=== PATIENT | female | born 2000 | race Caucasian/White ===

== ENCOUNTER 2023-09-12 11:34 | Emergency (ER) | payer MEDICAID, SELFPAY ==
[2023-09-12 11:50] VITALS: BP 113/76; PULSE 69; TEMP 36.7; O2SAT 98; BMI 38.4
[2023-09-12 11:53] VITALS: BP 128/94; PULSE 85; RESP 14; O2SAT 95
[2023-09-12] MEDS: orphenadrine 30 mg/mL Inj 2 mL 60 MG IM (12:05)
[2023-09-12] MEDS: ketorolac 30 mg/mL INJ IVP (12:08)
--- NOTE | 2023-09-12 12:08 | W.ED.BACK ---
HPI - Back Pain/Injury General: Chief Complaint: Back Pain/Injury Stated Complaint: back pain Time Seen by Provider: 09/12/23 11:54 Source: patient Mode of arrival: ambulatory History of Present Illness: 22-year-old female with a history of chronic back pain about 1 year ago she fell and injured her lower back. She had plain films there is no acute fractures she has intermittently had trouble with her back since that time. She does not recall her recent triggering event. She began to have more increasing back discomfort seen her primary care doctor started on meloxicam says it has not been helping. She has not had any advanced imaging in the past no red flag symptoms times she has not had any peritoneal or saddle paresthesias she has not had any fecal incontinence or urinary retention denies dysuria urgency or frequency no history of kidney stones no hematuria MD elicited complaint: back pain Pertinent past history: prior back pain Onset (ago): day(s) Timing: constant Severity: moderate Similar Symptoms Previously: Yes Quality: sharp Location: lumbar spine Radiation: right upper leg Exacerbating factors: movement, sitting upright and walking Relieving factors: supine Associated symptoms: Deny abdominal pain, arthralgias, chills, change in bowel habits, difficulty walking, dysuria, fatigue, fecal incontinence, fever(s), hematuria, myalgias, nausea, numbness, syncope, tingling/numbness/burning, urinary frequency, urinary urgency, vomiting or weakness Treatments prior to arrival: NSAIDS Work related injury: No Review of Systems Const: Denies: fever(s), chills or fatigue Card: Denies: syncope Resp: Denies: dyspnea GI: Denies: abdominal pain, nausea, vomiting, fecal incontinence or change in bowel habits : Denies: dysuria, urinary urgency or hematuria Musc: Denies: neck pain or back pain Skin/Breast: Denies: rash Neuro: Denies: difficulty walking Physical Exam Const: GENERAL APPEARANCE: cooperative and comfortable ORIENTATION/CONSCIOUSNESS: Yes awake, Yes oriented to person, Yes oriented to place and Yes oriented to time HENMT: COMMON NORMALS: normocephalic, atraumatic and hearing grossly normal bilaterally HEAD & SCALP: normocephalic and atraumatic Resp: COMMON NORMALS: normal respiratory effort, No retractions, No use of accessory muscles and clear to auscultation bilaterally AUSCULTATION: clear to auscultation bilaterally Cardio: COMMON NORMALS: regular rate, regular rhythm and No murmurs present (Cardio) RATE: regular rate RHYTHM: regular rhythm GI: COMMON NORMALS: Soft to palpation and No hepatosplenomegaly present AUSCULTATION: Yes normoactive bowel sounds PALPATION: Yes Soft to palpation, No Tenderness to palpation present (GI), No Guarding due to palpation present (GI) and Yes No hepatosplenomegaly present Extremity: COMMON NORMALS: normal to inspection, capillary refill normal, no clubbing, cyanosis or edema, no calf tenderness and no pedal edema Neuro: SENSORIUM/ORIENTATION: Yes oriented to person, Yes oriented to place and Yes oriented to time OTHER: Straight leg raising does irritate mildly in the right leg with some element for 5 radicular symptoms to the level of the knee. Dorsum plantarflexion ankle at the ankle are 5 of 5 deep tendon patellar reflexes +2/4 bilaterally neurovascularly intact in the lower extremities. Skin: COMMON NORMALS: no rashes or lesions noted GENERAL SKIN EXAM: no rashes or lesions noted Course Vital Signs: Vital signs: Vital Signs Temperature 98.1 F 09/12/23 11:50 Pulse Rate 78 09/12/23 13:28 Respiratory Rate 20 H 09/12/23 12:10 Blood Pressure 106/72 09/12/23 13:28 Pulse Oximetry 98 09/12/23 13:28 Oxygen Delivery Me thod Room Air 09/12/23 11:53 MDM - Back Pain/Injury Medical Decision Making Lumbar radiculopathy no red flag symptoms. No recent trauma. No imaging was done today given her history. Will start her on a steroid taper Norflex change her diclofenac to use as needed. Have her follow-up with her primary care doc if symptoms persist she may need to be evaluated with advanced imaging. Differential Diagnosis Likely lumbar radiculopathy and strain of lumbar region Medical Records I reviewed the patient's medical records. Labs I reviewed the patient's lab results. No radiology studies performed this visit Discharge Plan Discharge Patient Disposition: Home Clinical Impression: Strain of lumbar region Condition: Stable Prescriptions: New tizanidine 4 mg tablet 4 mg PO Q6H PRN (Reason: muscle spasticity) Qty: 20 0RF Rx Instructions: do not exceed 3 doses per 24 hrs prednisone 20 mg tablet 20 mg PO TID Qty: 15 0RF Rx Instructions: 1 p.o. 3 times daily x3 days, 1 p.o. twice daily x2 days, 1 p.o. daily x2 days diclofenac sodium 75 mg tablet,delayed release (DR/EC) 75 mg PO Q12H PRN (Reason: pain) Qty: 20 0RF No Action meloxicam 15 mg Tablet 15 mg PO DAILY buspirone 15 mg Tablet 15 mg PO TID escitalopram oxalate 20 mg tablet 20 mg PO DAILY Discharge Orders: Discharge ED (Routine); Ordered 09/12/23 Ordered By: Antonio Brar Referrals: Jose Martin Baumann FNP [Primary Care Provider] - Patient Instructions: Lumbar Radiculopathy (ED), Opioid Safety, Pain Management Activity Restrictions/Additional Instructions: Thank you for choosing [facility] for your healthcare needs today. Please realize this is an emergency room and that we are providing you with a medical screening exam and this may not be complete and all inclusive of all the testing and or work up that you may need to determine your ailment or severity of your illness. It is very important that you follow up as instructed or that you return to the Emergency Department should you have concerns or if your condition changes or worsens in any way. Coding Level of Care Code ED Crystal Mounter for João Navarro
[2023-09-12 12:10] VITALS: RESP 20; O2SAT 95
[2023-09-12] MEDS: morphine 4 mg/mL SDV 1 mL IVP (12:10)
[2023-09-12] MEDS: dexamethasone 10 mg/mL INJ IM (12:11)
[2023-09-12 13:28] VITALS: BP 106/72; PULSE 78; O2SAT 98
== END 2023-09-12 13:30 | disposition home or self-care (01) ==
PROVIDERS: Emergency Provider Family Medicine; PCP Nurse Practitioner Family
DX: S39.012A Strain of muscle, fascia and tendon of lower back, initial encounter (principal); X58.XXXA Exposure to other specified factors, initial encounter
CPT/HCPCS: 96372; 96374; 96375; 99284; J1100; J1885; J2270; J2360

== ENCOUNTER 2023-10-26 10:06 | Emergency (ER) | payer MEDICAID, SELFPAY ==
[2023-10-26 10:29] VITALS: BP 132/84; PULSE 100; RESP 18; TEMP 36.8; O2SAT 100; BMI 36.9
[2023-10-26 11:07] LABS: Basophils % 0.5 %; Eosinophils # 0.1 10^3/uL (0.0-0.8); Eosinophils % 1.5 %; Hematocrit 43.8 % (36-47); Lymphocytes # 2.4 10^3/uL (0.8-4.8); Lymphocytes % 31.3 %; Mean Corpuscular HGB Conc 32.6 g/dL (30-55); Mean Corpuscular Hemoglobin 29.5 pg (27-33); Mean Corpuscular Volume 90.5 fl (85-98); Monocytes # 0.5 10^3/uL (0.2-0.9); Monocytes % 6.8 %; Neutrophils # 4.49 10^3/uL (1.8-7.7); Neutrophils % 59.6 %; Nucleated Red Blood Cells % 0 %; Platelet Count 282 10^3/cmm (157-399); Red Blood Count 4.84 10^6/uL (3.85-5.65); Red Cell Distribution Width 13.9 % (12.1-15.1); White Blood Count 7.53 10^3/uL (3.29-11.43)
[2023-10-26 11:23] LABS: HCG, Serum Qual Negative (Negative)
[2023-10-26 11:31] LABS: Alanine Aminotransferase 124 U/L (0-33); Albumin Level 4.5 g/dL (3.5-5.2); Alkaline Phosphatase 120 U/L (35-105); Anion Gap 17.1 (5-19); Aspartate Amino Transferase 30 U/L (0-32); Blood Urea Nitrogen 7 mg/dL (6-20); Calcium 9.2 mg/dL (8.5-10.5); Carbon Dioxide 22 mmol/L (22-29); Chloride 110 mmol/L (98-107); Creatinine Clr Calc Pharmacy 102.3819; Glomerular Filtration Rate 77.6 mL/min (90-130); Glucose 93 mg/dL (65-115); Osmolality Calculated 300 mOsm/kg (285-295); Potassium 3.1 mmol/L (3.5-5.1); Sodium 146 mmol/L (136-145); Total Bilirubin 0.5 mg/dL (0.15-1.2); Total Protein 7.5 g/dL (6.6-8.7)
--- NOTE | 2023-10-26 11:48 | US_ITS ---
WS: [id number] US pelv w/transvag [id number] HISTORY: vag bleeding COMPARISON: None available. Uterus: 7.2 cm x 3.9 cm x 3.8 cm. Retroverted uterus is normal size. No fibroid. Endometrium: 0.5 cm. Normal. Right ovary: 3.3 cm x 2.0 cm x 2.5 cm. Normal size and vascularity, no cystic or solid masses. Multip le small follicles. Peripheral follicles are increased in number. Left ovary: 3.3 cm x 3.0 cm x 1.4 cm. Normal size ovary. Increasing peripheral follicles. Physiologic free fluid. US/US pelv w/transvag [id number] IMPRESSION: 1. Normal endometrium. 2. Retroverted uterus. 3. Multiple small peripheral ovarian follicles. Numerous peripheral follicles and location are approaching the number seen with PCOS.
--- NOTE | 2023-10-26 14:04 | ED_ITS ---
HPI - Female Genitourinary 2 General: Chief complaint: Vaginal Bleeding Stated complaint: abd and pelvic pain, vaginal bleeding for 3 weeks Time Seen by Provider: 10/26/23 13:33 Source: patient Mode of arrival: ambulatory Limitations: no limitations History of Present Illness: Patient is a 22-year-old female here with complaints of heavy vaginal bleeding. Patient states she has been on the Depo-Provera shot over the past 5 months. She states over that timeframe she has not experienced any vaginal bleeding however the past 2 to 3 weeks she has started bleeding heavily with the passage of clots thus causing her concern prompting her medical evaluation. She is reporting lower extremity cramping. She has otherwise not had any vaginal discharge or vaginal odor. No new sexual partners. No fevers. She states she is up-to-date on Pap smear performed by her PCP. MD elicited complaint: vaginal bleeding Onset (ago): week(s) Severity: moderate Vaginal discharge: none Vaginal bleeding: moderate and clots Exacerbating factors: none Relieving factors: none Associated symptoms: Deny abdominal pain, nausea or vaginal discharge Patient : No Review of Systems 2 Const: Denies: fever(s) Card: Denies: chest pain Resp: Denies: dyspnea GI: Denies: abdominal pain, nausea, vomiting, diarrhea or change in bowel habits : Reports: vaginal bleeding and pelvic pain; Denies: flank pain, difficulty voiding, dysuria, urinary frequency, urinary urgency, urinary hesitancy, hematuria, genital pruritis, vaginal odor or vaginal discharge Musc: Denies: back pain Neuro: Denies: dizziness Physical Exam 2 Const: COMMON NORMALS: no acute distress, patient oriented x3, no limitations, alert and well nourished GENERAL APPEARANCE: cooperative NUTRITIONAL APPEARANCE: obese ORIENTATION/CONSCIOUSNESS: Yes awake, Yes oriented to person, Yes oriented to place and Yes oriented to time Resp: COMMON NORMALS: normal respiratory effort and clear to auscultation bilaterally AUSCULTATION: clear to auscultation bilaterally Cardio: COMMON NORMALS: regular rate and regular rhythm RATE: regular rate RHYTHM: regular rhythm GI: COMMON NORMALS: Normal to inspection, nondistended, normoactive bowel sounds present, Soft to palpation, No hepatosplenomegaly present and no masses INSPECTION: Yes normal to inspection PALPATION: Yes Soft to palpation, Yes Tenderness to palpation present (GI) (mild lower abdomen/pelvis; non surgical exam), No Guarding due to palpation present (GI), No Rigid due to palpation and Yes No hepatosplenomegaly present : COMMON NORMALS: Yes no CVA tenderness BLADDER/KIDNEY EXAM: Yes no CVA tenderness Back/Pelvis: COMMON NORMALS: no CVA tenderness Neuro: COMMON NORMALS: patient oriented x3 SENSORIUM/ORIENTATION: Yes alert, Yes oriented to person, Yes oriented to place and Yes oriented to time Course 2 Vital Signs: Vital signs: Vital Signs Temperature 98.2 F 10/26/23 10:29 Pulse Rate 100 10/26/23 10:29 Respiratory Rate 18 10/26/23 10:29 Blood Pressure 132/84 10/26/23 10:29 Pulse Oximetry 100 10/26/23 10:29 Oxygen Delivery Me thod Room Air 10/26/23 10:29 MDM - Female Medical Decision Making Patient clinically appearing in no acute distress. Her vital signs are stable. Her H&H is normal. Transvaginal ultrasound showing multiple small peripheral ovarian follicles-radiologist commented that the numerous follicles on location are approaching the number seen with PCOS. No other abnormalities noted. Patient is UTD on Pap smear. At this time I would like her to follow-up with [facility]. She is stable for discharge from an emergency standpoint. Lab Data 10/26/23 10:49 10/26/23 10:49 Radiology Impressions Pelvic/Transvag US 10/26/23 11:48 IMPRESSION: 1. Normal endometrium. 2. Retroverted uterus. 3. Multiple small peripheral ovarian follicles. Numerous peripheral follicles and location are approaching the number seen with PCOS. Laboratory Results WBC 7.53 10^3/uL (3.29-11.43) 10/26/23 10:49 RBC 4.84 10^6/uL (3.85-5.65) 10/26/23 10:49 Hgb 14.30 g/dL (11.27-16.99) 10/26/23 10:49 Hct 43.8 % (36-47) 10/26/23 10:49 MCV 90.5 fl (85-98) 10/26/23 10:49 MCH 29.5 pg (27-33) 10/26/23 10:49 MCHC 32.6 g/dL (30-55) 10/26/23 10:49 RDW 13.9 % (12.1-15.1) 10/26/23 10:49 Plt Count 282 10^3/cmm (157-399) 10/26/23 10:49 MPV 12.0 fL (7.4-10.4) H 10/26/23 10:49 Neut % (Auto) 59.6 % 10/26/23 10:49 Lymph % (Auto) 31.3 % 10/26/23 10:49 Ada % (Auto) 6.8 % 10/26/23 10:49 Eos % (Auto) 1.5 % 10/26/23 10:49 Baso % (Auto) 0.5 % 10/26/23 10:49 Neut # (Auto) 4.49 10^3/uL (1.8-7.7) 10/26/23 10:49 Lymph # (Auto) 2.4 10^3/uL (0.8-4.8) 10/26/23 10:49 Ada # (Auto) 0.5 10^3/uL (0.2-0.9) 10/26/23 10:49 Eos # (Auto) 0.1 10^3/uL (0.0-0.8) 10/26/23 10:49 Baso # (Auto) 0.0 10^3/uL (0.0-0.1) 10/26/23 10:49 Nucleated RBC % (auto) 0 % 10/26/23 10:49 Nucleated RBCs # 0.0 /100WBC 10/26/23 10:49 Sodium 146 mmol/L (136-145) H 10/26/23 10:49 Potassium 3.1 mmol/L (3.5-5.1) L 10/26/23 10:49 Chloride 110 mmol/L (98-107) H 10/26/23 10:49 Carbon Dioxide 22 mmol/L (22-29) 10/26/23 10:49 Anion Gap 17.1 (5-19) 10/26/23 10:49 BUN 7 mg/dL (6-20) 10/26/23 10:49 Creatinine 0.9 mg/dL (0.5-0.9) 10/26/23 10:49 GFR Calculation 77.6 mL/min (90-130) L 10/26/23 10:49 Glucose 93 mg/dL (65-115) 10/26/23 10:49 Calculated Osmolality 300 mOsm/kg (285-295) H 10/26/23 10:49 Calcium 9.2 mg/dL (8.5-10.5) 10/26/23 10:49 Total Bilirubin 0.5 mg/dL (0.15-1.2) 10/26/23 10:49 AST 30 U/L (0-32) 10/26/23 10:49 ALT 124 U/L (0-33) H 10/26/23 10:49 Alkaline Phosphatase 120 U/L (35-105) H 10/26/23 10:49 Total Protein 7.5 g/dL (6.6-8.7) 10/26/23 10:49 Albumin 4.5 g/dL (3.5-5.2) 10/26/23 10:49 Globulin 3.0 g/dL (1.3-4.6) 10/26/23 10:49 HCG, Qual Negative (Negative) 10/26/23 10:49 Ser , Semi-Qnt Cancelled 10/26/23 10:49 All radiology interpretation(s) finalized by discharge Discharge Plan Discharge Condition: Stable Prescriptions: No Action tizanidine 4 mg tablet 4 mg PO Q6H PRN (Reason: muscle spasticity) Qty: 20 0RF Rx Instructions: do not exceed 3 doses per 24 hrs prednisone 20 mg tablet 20 mg PO TID Qty: 15 0RF Rx Instructions: 1 p.o. 3 times daily x3 days, 1 p.o. twice daily x2 days, 1 p.o. daily x2 days diclofenac sodium 75 mg tablet,delayed release (DR/EC) 75 mg PO Q12H PRN (Reason: pain) Qty: 20 0RF meloxicam 15 mg Tablet 15 mg PO DAILY buspirone 15 mg Tablet 15 mg PO TID escitalopram oxalate 20 mg tablet 20 mg PO DAILY Referrals: Jose Martin Baumann FNP [Primary Care Provider] - Coding Level of Care Code ED Consulting Networking Engineer for Vivienneg Ramon
[2023-10-26] MEDS: potassium chloride ER 20 mEq Tablet 40 MEQ PO (14:35)
[2023-10-26 14:53] VITALS: BP 132/84; PULSE 100; RESP 18; TEMP 36.8; O2SAT 100
--- NOTE | 2023-10-27 07:25 | DCPLANNER ---
Message sent to [employer] C[employer] for follow up - poss PCOS
== END 2023-10-26 14:57 | disposition home or self-care (01) ==
PROVIDERS: Emergency Provider Physician Assistant; PCP Nurse Practitioner Family
DX: R10.2 Pelvic and perineal pain (principal); N93.9 Abnormal uterine and vaginal bleeding, unspecified
CPT/HCPCS: 36415; 76830; 76856; 80053; 84703; 85025; 99284

== ENCOUNTER 2023-12-02 13:54 | Emergency (ER) | payer MEDICAID, SELFPAY ==
[2023-12-02 13:56] VITALS: BP 109/73; PULSE 102; RESP 16; TEMP 36.6; O2SAT 98
--- NOTE | 2023-12-02 15:32 | W.ED.BACK ---
HPI - Back Pain/Injury General: Chief Complaint: Back Pain/Injury Stated Complaint: Low back pain Time Seen by Provider: 12/02/23 14:58 Source: patient Mode of arrival: ambulatory History of Present Illness: 23-year-old female presents emergency room with complaint of low back pain she has had this intermittently for the last year it has been quite a bit worse the last couple of weeks. She has seen her primary care doctor they had been trying to get her set up for an MRI but it is not yet been arranged for her. She is using anti-inflammatories and muscle relaxers heat nothing is really helped her back. Bending picking up heavy objects seems to exacerbate it. She has no fecal incontinence no urinary retention. Does have pain radiating to the upper thigh bilaterally. No weakness in her lower extremities. MD elicited complaint: back pain Pertinent past history: prior back pain Onset (ago): minute(s) Timing: constant Severity: moderate Similar Symptoms Previously: Yes Location: lumbar spine Radiation: none Exacerbating factors: none Associated symptoms: Deny abdominal pain, arthralgias, chills, change in bowel habits, difficulty walking, dysuria, fatigue, fecal incontinence, fever(s), hematuria, myalgias, nausea, numbness, syncope, tingling/numbness/burning, urinary frequency, urinary urgency, vomiting or weakness Treatments prior to arrival: heat therapy, NSAIDS and prescription analgesics (Muscle relaxer) Review of Systems Const: Denies: fever(s), chills or fatigue Card: Denies: syncope Resp: Denies: dyspnea GI: Denies: abdominal pain, nausea, vomiting, fecal incontinence or change in bowel habits : Denies: dysuria, urinary urgency or hematuria Musc: Reports: back pain; Denies: neck pain Skin/Breast: Denies: rash Neuro: Denies: difficulty walking PFSH ED PFSH: Family History Grandmother Colon cancer Hypertension Stroke Diabetes Mother Hypertension Denies family history of Ovarian cancer Heart disease Hyperlipidemia Breast cancer Uterine cancer Thyroid disease Social History Smoking and tobacco/nicotine status: never used tobacco/nicotine Physical Exam Const: GENERAL APPEARANCE: cooperative and comfortable ORIENTATION/CONSCIOUSNESS: Yes awake, Yes oriented to person, Yes oriented to place and Yes oriented to time HENMT: COMMON NORMALS: normocephalic, atraumatic and hearing grossly normal bilaterally HEAD & SCALP: normocephalic and atraumatic Resp: COMMON NORMALS: normal respiratory effort, No retractions, No use of accessory muscles and clear to auscultation bilaterally AUSCULTATION: clear to auscultation bilaterally Cardio: COMMON NORMALS: regular rate, regular rhythm and No murmurs present (Cardio) RATE: regular rate RHYTHM: regular rhythm GI: COMMON NORMALS: Soft to palpation and No hepatosplenomegaly present AUSCULTATION: Yes normoactive bowel sounds PALPATION: Yes Soft to palpation, No Tenderness to palpation present (GI), No Guarding due to palpation present (GI) and Yes No hepatosplenomegaly present : COMMON NORMALS: Yes no CVA tenderness BLADDER/KIDNEY EXAM: Yes no CVA tenderness Back/Pelvis: COMMON NORMALS: no CVA tenderness Extremity: COMMON NORMALS: normal to inspection, capillary refill normal, no clubbing, cyanosis or edema, no calf tenderness and no pedal edema Neuro: SENSORIUM/ORIENTATION: Yes oriented to person, Yes oriented to place and Yes oriented to time OTHER: Straight leg raising test negative dorsoplantar flexion 5 5 and lower extremity sensation normal. Skin: COMMON NORMALS: no rashes or lesions noted GENERAL SKIN EXAM: no rashes or lesions noted Course Vital Signs: Vital signs: Vital Signs Temperature 97.9 F 12/02/23 13:56 Pulse Rate 88 12/02/23 17:25 Respiratory Rate 16 12/02/23 13:56 Blood Pressure 108/77 12/02/23 16:30 Pulse Oximetry 96 12/02/23 17:25 Oxygen Delivery Me thod Room Air 12/02/23 16:30 MDM - Back Pain/Injury Medical Decision Making Patient presents with low back pain musculoskeletal in nature no red flag symptoms. Will discharge patient home with steroid taper anti-inflammatories pain medications follow-up with primary care Medical Records I reviewed the patient's medical records. Labs I reviewed the patient's lab results. No radiology studies performed this visit Discharge Plan Discharge Patient Disposition: Home Clinical Impression: Strain of lumbar region Condition: Stable Prescriptions: New tizanidine 4 mg tablet 4 mg PO Q6H PRN (Reason: muscle spasticity) Qty: 20 0RF Rx Instructions: do not exceed 3 doses per 24 hrs hydrocodone-acetaminophen 5-325 mg tablet 1 tab PO Q6H PRN (Reason: pain) Qty: 10 0RF prednisone 20 mg tablet 20 mg PO TID Qty: 15 0RF Rx Instructions: 1 p.o. 3 times daily x3 days, 1 p.o. twice daily x2 days, 1 p.o. daily x2 days diclofenac sodium 75 mg tablet,delayed release (DR/EC) 75 mg PO Q12H PRN (Reason: pain) Qty: 20 0RF No Action methocarbamol 750 mg tablet 750 mg PO TID PRN phentermine 37.5 mg capsule 37.5 mg PO DAILY Rx Instructions: must administer 30 minutes before or 1-2 hours after breakfast medroxyprogesterone [Depo-Provera] 150 mg/mL suspension IM .3months topiramate [Topamax] 50 mg tablet 50 mg PO BID buspirone 15 mg Tablet 15 mg PO TID escitalopram oxalate 20 mg tablet 20 mg PO DAILY Discharge Orders: Discharge ED (Routine); Ordered 12/02/23 Ordered By: Antonio Brar Referrals: Jose Martin Baumann FNP [Primary Care Provider] - Discharge Diet: Usual diet Discharge Activity: Increase activity as tolerated Patient Instructions: Acute Low Back Pain (ED), Opioid Safety, Pain Management Activity Restrictions/Additional Instructions: Thank you for choosing [facility] for your healthcare needs today. It is very important that you follow up as instructed or that you return to the Emergency Department should you have concerns or if your condition changes or worsens in any way. You were seen for low back pain. Recommend that you follow-up with your primary care doctor if your symptoms do not improve. Hold methocarbamol you can use the hydrocodone diclofenac and tizanidine as needed. Use the prednisone's as scheduled starting tomorrow. If your symptoms or not improving follow-up with your primary care doctor Coding Level of Care Code ED Industrial Machinery Mechanic for João Navarro
[2023-12-02 15:37] VITALS: BP 110/86; PULSE 80; O2SAT 98
[2023-12-02] MEDS: ketorolac 30 mg/mL INJ IVP (16:15)
[2023-12-02] MEDS: orphenadrine 30 mg/mL Inj 2 mL 60 MG IVP (16:18)
[2023-12-02] MEDS: morphine 4 mg/mL SDV 1 mL IVP (16:23)
[2023-12-02] MEDS: dexamethasone 10 mg/mL INJ IM (16:29)
[2023-12-02 16:30] VITALS: BP 108/77; PULSE 90; O2SAT 98
[2023-12-02 17:25] VITALS: PULSE 88; O2SAT 96
== END 2023-12-02 17:25 | disposition home or self-care (01) ==
PROVIDERS: Emergency Provider Family Medicine; PCP Nurse Practitioner Family
DX: S39.012A Strain of muscle, fascia and tendon of lower back, initial encounter (principal); Z79.899 Other long term (current) drug therapy; X58.XXXA Exposure to other specified factors, initial encounter
CPT/HCPCS: 96372; 96374; 96375; 99284; J1100; J1885; J2270; J2360

== ENCOUNTER 2023-12-25 18:55 | Emergency (ER) | payer MEDICAID, SELFPAY ==
[2023-12-25 19:14] VITALS: BP 116/76; PULSE 99; RESP 17; TEMP 36.7; O2SAT 98; BMI 35.3
[2023-12-25 19:43] LABS: Basophils % 0.3 %; Eosinophils # 0.3 10^3/uL (0.0-0.8); Eosinophils % 1.9 %; Hematocrit 43.1 % (36-47); Lymphocytes # 3.4 10^3/uL (0.8-4.8); Lymphocytes % 25.1 %; Mean Corpuscular HGB Conc 32.5 g/dL (30-55); Mean Corpuscular Hemoglobin 29.9 pg (27-33); Mean Corpuscular Volume 92.1 fl (85-98); Mean Platelet Volume 10.5 fL (7.4-10.4); Monocytes # 0.8 10^3/uL (0.2-0.9); Monocytes % 5.7 %; Neutrophils % 66.6 %; Nucleated Red Blood Cells % 0 %; Platelet Count 293 10^3/cmm (157-399); Red Blood Count 4.68 10^6/uL (3.85-5.65); Red Cell Distribution Width 13.1 % (12.1-15.1)
[2023-12-25 20:19] VITALS: BP 126/75; PULSE 109; RESP 16; O2SAT 97
[2023-12-25 20:30] LABS: Bilirubin Urine Negative (Negative); Blood Urine Negative (Negative); Glucose Urine UA Negative (Normal); Ketones Urine Negative (Negative); Leukocyte Esterase Urine Negative (Negative); Nitrate Urine Negative (Negative); Protein Urine Negative (Negative); Specific Gravity, Urine 1.018 (1.005-1.030); Urine Appearance Cloudy (CLEAR); Urine Color Yellow (Yellow)
[2023-12-25 20:33] LABS: Hyaline Casts Urine 0.81 /lpf; RBC Urine 0-2 /hpf (0-2); Squamous Epithelial Cell Urine 21-50 /hpf (0-5)
--- NOTE | 2023-12-25 20:35 | ED_ITS ---
HPI - Abdominal Pain 2 General: Chief Complaint: Abdominal Pain Stated Complaint: Abd Pain, Lower back pain Time Seen by Provider: 12/25/23 19:42 Source: patient Mode of arrival: ambulatory Limitations: no limitations History of Present Illness: Patient is a 23-year-old female presents to ED today stating she had a home positive test and is also having some vaginal bleeding and cramping as well as low back pain. Patient states she has 24/7 low back pain and states her pain today is not any different. She is supposedly to have an MRI of her back-states her PCP has submitted a referral for this. She states she has borderline PCOS . Patient states she was on the Depo shot decided to discontinue this. Ever since she has had sporadic vaginal bleeding. Denies urinary symptoms. Denies vaginal discharge/odor/new sexual partners or concern for STDs. MD elicited complaint: abdominal pain and other ( spotting , home positive preg test, low back pain) Onset (ago): day(s) Pain Consistency: intermittent Severity: mild Quality: cramping Radiation: none Migration to: no migration Associated Symptoms: Denies change in bowel habits, chills, diarrhea, dysuria, fever(s), hematuria, nausea and vomiting Review of Systems 2 Const: Denies: fever(s), chills, body aches, fatigue or malaise Card: Denies: chest pain Resp: Denies: dyspnea GI: Reports: abdominal pain; Denies: nausea, vomiting, diarrhea or change in bowel habits : Reports: vaginal bleeding, metrorrhagia and pelvic pain; Denies: flank pain, difficulty voiding, dysuria, urinary frequency, urinary urgency, urinary hesitancy, hematuria, genital lesions, genital pruritis, vaginal discharge or irregular period Musc: Denies: neck pain, back pain, extremity pain, extremity swelling, joint pain or joint swelling Skin/Breast: Denies: rash Neuro: Denies: headache(s), numbness in extremities, weakness in extremities, sensory changes or dizziness PFSH ED 2 PFSH: Family History Grandmother Colon cancer Hypertension Stroke Diabetes Mother Hypertension Denies family history of Ovarian cancer Heart disease Hyperlipidemia Breast cancer Uterine cancer Thyroid disease Social History Smoking and tobacco/nicotine status: never used tobacco/nicotine Physical Exam 2 Const: COMMON NORMALS: no acute distress, patient oriented x3, no limitations, alert and well nourished GENERAL APPEARANCE: cooperative NUTRITIONAL APPEARANCE: overweight ORIENTATION/CONSCIOUSNESS: Yes awake, Yes oriented to person, Yes oriented to place and Yes oriented to time Resp: COMMON NORMALS: normal respiratory effort and clear to auscultation bilaterally AUSCULTATION: clear to auscultation bilaterally Cardio: COMMON NORMALS: regular rate and regular rhythm RATE: regular rate RHYTHM: regular rhythm GI: COMMON NORMALS: Normal to inspection, nondistended, normoactive bowel sounds present, Soft to palpation, non-tender, No hepatosplenomegaly present and no masses PALPATION: Yes Soft to palpation and Yes No hepatosplenomegaly present : COMMON NORMALS: Yes no CVA tenderness BLADDER/KIDNEY EXAM: Yes no CVA tenderness OTHER: deferred Back/Pelvis: COMMON NORMALS: no CVA tenderness Neuro: COMMON NORMALS: patient oriented x3 SENSORIUM/ORIENTATION: Yes alert, Yes oriented to person, Yes oriented to place and Yes oriented to time Course 2 Vital Signs: Vital signs: Vital Signs Temperature 98.1 F 12/25/23 19:14 Pulse Rate 109 H 12/25/23 20:19 Respiratory Rate 16 12/25/23 20:19 Blood Pressure 126/75 12/25/23 20:19 Pulse Oximetry 97 12/25/23 20:19 Oxygen Delivery Me thod Room Air 12/25/23 20:19 MDM - Abdominal Pain Medical Decision Making Patient appears in no acute distress. Her vital signs are stable. Abdomen is nonsurgical. Her blood work overall is nonactionable. Her hCG is 1.00 indicating on . Her UA is clear. Patient is relieved to hear she is not . She states she feels comfortable following up with gynecology/PCP. Return to ED precautions given. Medical Records I reviewed the patient's medical records. Lab Data I reviewed the patient's lab results. 12/25/23 19:37 Labs/Radiology: Laboratory Results WBC 13.40 10^3/uL (3.29-11.43) H 12/25/23 19:37 RBC 4.68 10^6/uL (3.85-5.65) 12/25/23 19:37 Hgb 14.00 g/dL (11.27-16.99) 12/25/23 19:37 Hct 43.1 % (36-47) 12/25/23 19:37 MCV 92.1 fl (85-98) 12/25/23 19:37 MCH 29.9 pg (27-33) 12/25/23 19:37 MCHC 32.5 g/dL (30-55) 12/25/23 19:37 RDW 13.1 % (12.1-15.1) 12/25/23 19:37 Plt Count 293 10^3/cmm (157-399) 12/25/23 19:37 MPV 10.5 fL (7.4-10.4) H 12/25/23 19:37 Neut % (Auto) 66.6 % 12/25/23 19:37 Lymph % (Auto) 25.1 % 12/25/23 19:37 [place] % (Auto) 5.7 % 12/25/23 19:37 Eos % (Auto) 1.9 % 12/25/23 19:37 Baso % (Auto) 0.3 % 12/25/23 19:37 Neut # (Auto) 8.90 10^3/uL (1.8-7.7) H 12/25/23 19:37 Lymph # (Auto) 3.4 10^3/uL (0.8-4.8) 12/25/23 19:37 [place] # (Auto) 0.8 10^3/uL (0.2-0.9) 12/25/23 19:37 Eos # (Auto) 0.3 10^3/uL (0.0-0.8) 12/25/23 19:37 Baso # (Auto) 0.0 10^3/uL (0.0-0.1) 12/25/23 19:37 Nucleated RBC % (auto) 0 % 12/25/23 19:37 Nucleated RBCs # 0.0 /100WBC 12/25/23 19:37 Ser , Semi-Qnt 1.00 mIU/mL 12/25/23 19:37 Urine Color Yellow (Yellow) 12/25/23 20:16 Urine Appearance Cloudy (CLEAR) A 12/25/23 20:16 Urine pH 6.0 (5-7) 12/25/23 20:16 Ur Specific [place] 1.018 (1.005-1.030) 12/25/23 20:16 Urine Protein Negative (Negative) 12/25/23 20:16 Urine Glucose (UA) Negative (Normal) 12/25/23 20:16 Urine Ketones Negative (Negative) 12/25/23 20:16 Urine Blood Negative (Negative) 12/25/23 20:16 Urine Nitrate Negative (Negative) 12/25/23 20:16 Urine Bilirubin Negative (Negative) 12/25/23 20:16 Urine Urobilinogen 1.0 mg/dL (Negative) 12/25/23 20:16 Ur Leukocyte Esterase Negative (Negative) 12/25/23 20:16 Amorphous Sediment Not Reportable 12/25/23 20:16 No radiology studies performed this visit Discharge Plan Discharge Patient Disposition: Home Clinical Impression: Negative test, Irregular bleeding Condition: Stable Prescriptions: No Action methocarbamol 750 mg tablet 750 mg PO TID PRN phentermine 37.5 mg capsule 37.5 mg PO DAILY Rx Instructions: must administer 30 minutes before or 1-2 hours after breakfast medroxyprogesterone [Depo-Provera] 150 mg/mL suspension IM .3months topiramate [Topamax] 50 mg tablet 50 mg PO BID buspirone 15 mg Tablet 15 mg PO TID escitalopram oxalate 20 mg tablet 20 mg PO DAILY tizanidine 4 mg tablet 4 mg PO Q6H PRN (Reason: muscle spasticity) Qty: 20 0RF Rx Instructions: do not exceed 3 doses per 24 hrs hydrocodone-acetaminophen 5-325 mg tablet 1 tab PO Q6H PRN (Reason: pain) Qty: 10 0RF prednisone 20 mg tablet 20 mg PO TID Qty: 15 0RF Rx Instructions: 1 p.o. 3 times daily x3 days, 1 p.o. twice daily x2 days, 1 p.o. daily x2 days diclofenac sodium 75 mg tablet,delayed release (DR/EC) 75 mg PO Q12H PRN (Reason: pain) Qty: 20 0RF Discharge Orders: Discharge ED (Routine); Ordered 12/25/23 Ordered By: Laureen Dela Cruz Referrals: Jose Martin Baumann FNP [Primary Care Provider] - Coding Level of Care Code ED Paper Sample Clerk for Chg Ramon
[2023-12-25 20:49] VITALS: BP 144/81; PULSE 104; RESP 16; O2SAT 96
[2023-12-25 21:21] LABS: Bacteria Urine 3+ /hpf; Charge for UA Resulting for Rev
== END 2023-12-25 20:49 | disposition home or self-care (01) ==
PROVIDERS: Emergency Medicine; Emergency Provider Physician Assistant; PCP Nurse Practitioner Family
DX: Z32.02 Encounter for pregnancy test, result negative (principal); N92.6 Irregular menstruation, unspecified
CPT/HCPCS: 36415; 81003; 81015; 84702; 85025; 99283

== ENCOUNTER 2024-10-09 15:17 | Emergency (ER) | payer MEDICAID, SELFPAY ==
[2024-10-09 15:35] VITALS: BP 119/85; PULSE 74; TEMP 36.8; O2SAT 98
[2024-10-09 15:45] LABS: Basophils % 0.3 %; Eosinophils # 0.2 10^3/uL (0.0-0.8); Eosinophils % 1.7 %; Hematocrit 41.5 % (36-47); Lymphocytes # 3.2 10^3/uL (0.8-4.8); Mean Corpuscular HGB Conc 33.3 g/dL (30-55); Mean Corpuscular Hemoglobin 30.3 pg (27-33); Mean Platelet Volume 10.5 fL (7.4-10.4); Monocytes # 0.7 10^3/uL (0.2-0.9); Neutrophils # 6.91 10^3/uL (1.8-7.7); Neutrophils % 62.7 %; Nucleated Red Blood Cells % 0 %; Platelet Count 335 10^3/cmm (157-399); Red Blood Count 4.56 10^6/uL (3.85-5.65); Red Cell Distribution Width 12.7 % (12.1-15.1); White Blood Count 11.01 10^3/uL (3.29-11.43)
[2024-10-09 16:02] LABS: HCG Quantitative 4.96 mIU/mL
--- NOTE | 2024-10-09 17:12 | ED_ITS ---
HPI - General Adult 2 General: Chief complaint: Vaginal Bleeding Stated complaint: and bleeding Time Seen by Provider: 10/09/24 17:00 History of Present Illness: 23-year-old female patient presents [facility] room complaining of vaginal bleeding began this morning. She had a positive test at home estimates she is approximately 5 weeks gestation based on her mp. she not had any fevers or chills dysuria urgency or frequency. Associated symptoms: Deny chest pain, dyspnea or rash Related Data Home Medications ?Medication ?Instructions ?Recorded ?Confirmed buspirone 15 mg tablet 15 mg PO TID 09/12/23 escitalopram oxalate 20 mg tablet 20 mg PO DAILY 09/1103/07/24 medroxyprogesterone 150 mg/mL mg IM .3months 12/01/23 03/07/24 intramuscular suspension (Depo-Provera) methocarbamol 750 mg tablet 750 mg PO TID PRN 12/01/23 03/07/24 phentermine 37.5 mg capsule 37.5 mg PO DAILY 12/01/23 03/07/24 topiramate 50 mg tablet (Topamax) 50 mg PO BID 4 03/07/24 Previous Rx's ?Medication ?Instructions ?Recorded diclofenac sodium 75 mg 75 mg PO Q12H PRN pain #20 t abs 12/02/23 tablet,delayed release hydrocodone 5 mg-acetaminophen 325 1 tab PO Q6H PRN pa in #10 tabs 12/02/23 mg tablet prednisone 20 mg tablet 20 mg PO TID #15 tabs tizanidine 4 mg tablet 4 mg PO Q6H PRN muscle spast icity 12/02/23 #20 tabs Allergies Allergy/AdvReac Type Severity Reaction Status Date / Time Latex, Natural Rubber Allergy Mild ALGY-Rash Verified 10/09/24 15:40 Review of Systems 2 Const: Denies: fever(s) or chills Card: Denies: chest pain Resp: Denies: dyspnea GI: Denies: abdominal pain : Denies: dysuria, urinary frequency or urinary urgency Musc: Denies: neck pain or back pain Skin/Breast: Denies: rash PFSH ED 2 PFSH: Family History Grandmother Colon cancer Hypertension Stroke Diabetes Mother Hypertension Denies family history of Ovarian cancer Heart disease Hyperlipidemia Breast cancer Uterine cancer Thyroid disease Social History Smoking and tobacco/nicotine status: never used tobacco/nicotine Physical Exam 2 Const: COMMON NORMALS: no acute distress GENERAL APPEARANCE: cooperative and comfortable ORIENTATION/CONSCIOUSNESS: Yes awake, Yes oriented to person, Yes oriented to place and Yes oriented to time HENMT: COMMON NORMALS: normocephalic, atraumatic and hearing grossly normal bilaterally HEAD & SCALP: normocephalic and atraumatic Resp: COMMON NORMALS: normal respiratory effort, No retractions, No use of accessory muscles and clear to auscultation bilaterally AUSCULTATION: clear to auscultation bilaterally Cardio: COMMON NORMALS: regular rate, regular rhythm and No murmurs present (Cardio) RATE: regular rate RHYTHM: regular rhythm GI: COMMON NORMALS: Soft to palpation and No hepatosplenomegaly present A USCULTATION: Yes normoactive bowel sounds PALPATION: Yes Soft to palpation, No Tenderness to palpation present (GI), No Guarding due to palpation present (GI) and Yes No hepatosplenomegaly present Extremity: COMMON NORMALS: normal to inspection, capillary refill normal, no clubbing, cyanosis or edema, no calf tenderness and no pedal edema Neuro: SENSORIUM/ORIENTATION: Yes oriented to person, Yes oriented to place and Yes oriented to time Skin: COMMON NORMALS: no rashes or lesions noted GENERAL SKIN EXAM: no rashes or lesions noted Course 2 Vital Signs: Vital signs: Vital Signs Temperature 98.3 F 10/09/24 15:35 Pulse Rate 89 10/09/24 17:26 Blood Pressure 128/70 10/09/24 17:26 Pulse Oximetry 97 10/09/24 17:26 Oxygen Delivery Me thod Room Air 10/09/24 15:35 MDM - General Adult Medical Decision Making Patient Rh+ beta-hCG is less than 5. Highly suspicious for threatened AB most likely has already miscarried given beta-hCG is actually in the the range where the level typical report is not . Discussion with the patient. Recommend that she repeat a beta-hCG in 72 hours which will be more definitive. Reviewed with her that at this point with such a low beta-hCG ultrasound not helpful Medical Records I reviewed the patient's medical records. Lab Data I reviewed the patient's lab results. 10/09/24 15: Laboratory Results WBC 11.01 10^3/uL (3.29-11.43) 10/09/24 15: RBC 4.56 10^6/uL (3.85-5.65) 10/09/24 15: Hgb 13.80 g/dL (11.27-16.99) 10/09/24: Hct 41.5 % (36-47) 10/09/24 15: MCV 91.0 fl (85-98) 10/09/24 15: MCH 30.3 pg (27-33) 10/09/24: MCHC 33.3 g/dL (30-55) 10/09/24 15: RDW 12.7 % (12.1-15.1) 10/09/24: Plt Count 335 10^3/cmm (157-399) 10/09/24: MPV 10.5 fL (7.4-10.4) H 10/09/24 15: Neut % (Auto) 62.7 % 10/09/24: Lymph % (Auto) 29.0 % 10/09/24: [place] % (Auto) 6.0 % 10/09/24: Eos % (Auto) 1.7 % 10/09/24: Baso % (Auto) 0.3 % 10/09/24 Neut # (Auto) 6.91 10^3/uL (1.8-7.7) 10/09/24: Lymph # (Auto) 3.2 10^3/uL (0.8-4.8) 10/09/24: [place] # (Auto) 0.7 10^3/uL (0.2-0.9) 10/09/24 Eos # (Auto) 0.2 10^3/uL (0.0-0.8) 10/09/24: Baso # (Auto) 0.0 10^3/uL (0.0-0.1) 10/09/24: Nucleated RBC % (auto) 0 % 05/19/25 15:31 Nucleated RBCs # 0.0 /100WBC 10/09/24 15:31 Ser , Semi-Qnt 4.96 mIU/mL 10/09/24 15:31 Blood Type O Positive 10/09/24 15:31 Rho(D) Type Rh positive 10/09/24 15:31 Antibody Screen Negative 10/09/24 15:31 No radiology studies performed this visit Discharge Plan Discharge Patient Disposition: Home Clinical Impression: Miscarriage, threatened, early Condition: Stable Prescriptions: No Action methocarbamol 750 mg tablet 750 mg PO TID PRN phentermine 37.5 mg capsule 37.5 mg PO DAILY Rx Instructions: must administer 30 minutes before or 1-2 hours after breakfast medroxyprogesterone [Depo-Provera] 150 mg/mL suspension IM .3months topiramate [Topamax] 50 mg tablet 50 mg PO BID buspirone 15 mg Tablet 15 mg PO TID escitalopram oxalate 20 mg tablet 20 mg PO DAILY tizanidine 4 mg tablet 4 mg PO Q6H PRN (Reason: muscle spasticity) Qty: 20 0RF Rx Instructions: do not exceed 3 doses per 24 hrs hydrocodone-acetaminophen 5-325 mg tablet 1 tab PO Q6H PRN (Reason: pain) Qty: 10 0RF prednisone 20 mg tablet 20 mg PO TID Qty: 15 0RF Rx Instructions: 1 p.o. 3 times daily x3 days, 1 p.o. twice daily x2 days, 1 p.o. daily x2 days diclofenac sodium 75 mg tablet,delayed release (DR/EC) 75 mg PO Q12H PRN (Reason: pain) Qty: 20 0RF Discharge Orders: Discharge ED (Routine); Ordered 10/09/24 Ordered By: Antonio Brar Referrals: Jose Martin Baumann FNP [Primary Care Provider] Discharge Diet: Usual diet Discharge Activity: Resume usual activity Patient Instructions: Opioid Safety, Pain Management Activity Restrictions/Additional Instructions: Thank you for choosing [facility] for your healthcare needs today. It is very important that you follow up as instructed or that you return to the Emergency Department should you have concerns or if your condition changes or worsens in any way. You were seen in the emergency room with complaints of vaginal bleeding having had a positive test at home your serum quantitative hCG (a hormone of ) was less than 5. This is quite low typically below the level at which a home test would be positive. Recommend that you repeat beta- hCG in 72 hours with your primary care doctor. Print Language: Tamazight Coding Level of Care Code ED Weight Loss Consultant for João Navarro
[2024-10-09 17:26] VITALS: BP 128/70; PULSE 89; O2SAT 97
== END 2024-10-09 17:27 | disposition home or self-care (01) ==
PROVIDERS: Emergency Medicine; Emergency Provider Family Medicine; PCP Nurse Practitioner Family
DX: O20.0 Threatened abortion (principal); Z3A.01 Less than 8 weeks gestation of pregnancy
CPT/HCPCS: 36415; 84702; 85025; 86850; 86900; 99283

== ENCOUNTER 2024-11-07 11:47 | Outpatient (CLI) | payer MEDICAID, SELFPAY ==
--- NOTE | 2024-11-07 11:54 | XR_ITS ---
WS: [id number] Cervical spine, 3 views, 11/07/2024 Clinical Data: LARGE BREASTS Comparison: None. Findings: No compression fractures are seen. The disc heights are normal. There is no prevertebral soft tissue swelling. The odontoid is unremarkable. The soft tissues of the neck and the lung apices are normal. XR/XR cervical spine 3V* [id number] Impression: Negative cervical spine.
--- NOTE | 2024-11-07 11:54 | XR_ITS ---
WS: [id number] Thoracic spine, 3 views, 11/07/2024 Clinical Data: LARGE BREASTS Comparison: None. Findings: No compression fractures are seen. The disc heights are normal. The paravertebral regions are normal. XR/XR thoracic spine 2V [id number] Impression: Negative thoracic spine.
== END 2024-11-07 11:48 | disposition home or self-care (01) ==
PROVIDERS: PCP Nurse Practitioner Family; Visit Provider Nurse Practitioner Family
DX: N62 Hypertrophy of breast (principal)
CPT/HCPCS: 72040; 72070